=== PATIENT | male | born 1965 | race Caucasian/White ===

== ENCOUNTER 2020-06-04 07:35 | Day surgery (SDC) | payer OTHER ==
[~2020-06-04] VITALS: Ht 170.2 cm; Wt 91.8 kg
[~2020-06-04 07:35] MED LIST: GABAPENTIN100 MG PO; HYDROCODON-ACE1 EA11 PO; IBUPROFEN800 MG PO; LASIX20 MG PO; METHOTREXATE2.5 MG PO; MOVE FREE ULTR1 EAC2 PO; PREDNISONE20 MG PO; TRAMADOL HCL50 MG PO
--- NOTE | 2020-06-04 10:30 | NUR ---
06/04/20 1030 Mala Chatman 4222 PT ARRIVED IN PACU SLEEPY. ABD SOFT AND PASSING FLATUS. 1000 PT AWAKE SITTING UP IN BED TALKING WITH STAFF. 1005 DR AT BEDSIDE TALKING WITH PT. 1015 DC INSTRUCTIONS GIVEN. ALL QUESTIONS ANSWERED. UP TO BATHROOM WITH STAND BY ASSIST. 1020 PT DRESSED. LEFT VIA W/C.
--- NOTE | 2020-06-05 13:08 | OR ---
[facility] [address] [place], [place] [address] Signed DATE OF OPERATION: 06/04/2020 SURGEON: Chelly Mccray MD PREOPERATIVE DIAGNOSES: 1. Screening. 2. Pruritus ani. POSTOPERATIVE DIAGNOSES: 1. A 3 mm rectal polyps x3 at 7 cm. 2. Minimal sigmoid diverticulosis. 3. Dnnazsz-lu-nnshlcio internal hemorrhoids. 4. Mild pruritus ani. PROCEDURE: Colonoscopy with hot biopsy. ESTIMATED BLOOD LOSS: None. INDICATIONS: Wenceslao is a 54-year-old gentleman asked to see me for his initial screening colonoscopy. He has no family history of colon cancer or polyps. He really has no lower GI complaints, other than pruritus ani. However, he has learned to handle that conservatively and is doing quite well in that regard. I did give him our brochure on pruritus ani and we did go through it line by line. In addition, he continues to drink alcohol on a daily basis. 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 In that regard, we needed an anesthesia provider to help us increase monitoring and sedation with propofol. That proved to be goodwin, as he took a fair amount of propofol. In the office, I gave him a pamphlet on colonoscopy and we looked at that together in detail. He understands the nature of that test. We did review the risks including, but not limited to gas bloating, crampy abdominal pain, bleeding, perforation requiring surgery, and missed diagnosis. He had expressed understanding and wished to proceed. PROCEDURE NOTE: Wenceslao was taken into our endoscopy suite and placed in the left lateral decubitus position. He was given IV sedation with propofol per our nurse custodial worker. A digital rectal exam was performed. He really has very minimal pruritus ani. I think he is doing an excellent job in that regard. He had excellent sphincter tone. No external hemorrhoids. Prostate gland is a little indurated and enlarged, left more prominent Electronically Signed By: CHELLY MCCRAY MD 06/05/20 0633 Electronically Signed By: CHELLY MCCRAY MD 06/06/20 0655 PATIENT NAME: WENCESLAO MACDONALD II OPERATIVE REPORT DATE OF : 65 REPORT #: [id number] PHYSICIAN: CHELLY MCCRAY MD PCP: MILTON LEVIN DO REPORT IS CONFIDENTIAL AND NOT TO BE RELEASED WITHOUT AUTHORIZATION [facility] [address] [place], [place] [address] Signed than the right. The adult colonoscope had been introduced and advanced all around into the cecum under direct visualization of camera without difficulty. His prep was quite excellent. We could easily see the appendiceal orifice and the ileocecal valve. The scope had been slowly withdrawn. He has a few diverticula in the sigmoid colon. They were moderate in size, few in number, and scattered about. Once in the rectum, he had very tiny 3 mm polyps in the mid rectum. They were easily removed with the cold biopsy forceps. Upon retroflexion of the scope, he does have [id number] internal hemorrhoid columns. After this, the gas was suctioned out, the colonoscope removed. Wenceslao tolerated the procedure quite well. RECOMMENDATIONS: I will see Wenceslao back in my office in 7 to 14 days to review his results. Chelly Mccray MD ALB/MODL /[id number] cc: MD Milton Lawrence DO Leslie Jackson, MD Copies: CHELLY MCCRAY MD, ARIAN DO JACKSON, LESLIE MD ~ Electronically Signed By: CHELLY MCCRAY MD 06/05/20 0633 Electronically Signed By: CHELLY MCCRAY MD 06/06/20 0655 PATIENT NAME: WENCESLAO MACDONALD II OPERATIVE REPORT DATE OF : 65 REPORT #: [id number] PHYSICIAN: CHELLY MCCRAY MD PCP: MILTON LEVIN DO REPORT IS CONFIDENTIAL AND NOT TO BE RELEASED WITHOUT AUTHORIZATION
--- NOTE | 2020-06-06 15:39 | PATH ---
[facility] [address] [place], [place] [address] Signed SPECIMEN(S): A COLON POLYP AT 7 CM SPECIMEN SOURCE: A. COLON POLYP AT 7 CM CLINICAL HISTORY: Screening colonoscopy. Diverticulosis, rectal polyps, internal hemorrhage. MICROSCOPIC DESCRIPTION: Histologic sections of all submitted blocks are examined by light microscopy. These findings, together with the gross examination, support the pathologic diagnosis. FINAL PATHOLOGIC DIAGNOSIS: Colon, polyp at 7 cm, polypectomy: - Fragments of hyperplastic polyp. - Negative for dysplasia or malignancy. NAL:cml:C2NR GROSS DESCRIPTION: The specimen, labeled "MH, colon polyp at 7 cm," is received in formalin and consists of three bowles soft tissue fragments that measure 0.1-0.2 cm in greatest dimension. The specimen is entirely submitted in cassette (A1). JS (under the direct supervision of a pathologist) The Gross Description was prepared using a voice recognition system. The report was reviewed for accuracy; however, sound-alike word errors, addition and/or deletions may occur. If there is any question about this report, please contact Client Services. PERFORMING LABORATORY: The technical component was performed by [facility], [address] [place] [address] (Single Fold Machine Operator: Ying Reynolds MD; CLIA# [id number]). [facility], [address] [address] (CLIA# [id number]). Diagnostician: Paulina Wood MD Pathologist Electronically Signed 06/06/2020 PATIENT NAME: HONORIO MACDONALD II PATHOLOGY DATE OF : 65 REPORT #: [id number] PHYSICIAN: TELLY PATHOLOGY PCP: SHANNAN LEVIN DO REPORT IS CONFIDENTIAL AND NOT TO BE RELEASED WITHOUT AUTHORIZATION [address] [place], [place] [address] Signed Copies: ~ PATIENT NAME: HONORIO MACDONALD II PATHOLOGY DATE OF : 65 REPORT #: [id number] PHYSICIAN: TELLY PATHOLOGY PCP: SHANNAN LEVIN DO REPORT IS CONFIDENTIAL AND NOT TO BE RELEASED WITHOUT AUTHORIZATION
== END 2020-06-04 10:20 | disposition home or self-care (01) ==
LOC: DS 07:35 → OPS 07:35
PROVIDERS: ATTEND Colon & Rectal Surgery
PROC: 0DBP8ZX Excision of Rectum, Via Natural or Artificial Opening Endoscopic, Diagnostic (ICD-10-PCS; principal; 2020-06-04 07:30)
DX: Z12.11 Encounter for screening for malignant neoplasm of colon (principal); K62.1 Rectal polyp; K57.90 Diverticulosis of intestine, part unspecified, without perforation or abscess without bleeding; K64.8 Other hemorrhoids; M33.20 Polymyositis, organ involvement unspecified; F17.210 Nicotine dependence, cigarettes, uncomplicated; F10.20 Alcohol dependence, uncomplicated; M85.80 Other specified disorders of bone density and structure, unspecified site; E55.9 Vitamin D deficiency, unspecified; L29.0 Pruritus ani
CPT/HCPCS: J2001; J2704; J7121

== ENCOUNTER 2020-11-25 10:45 | Emergency (ER) | payer OTHER ==
[~2020-11-25] VITALS: Ht 170.2 cm; Wt 91.6 kg
[2020-11-25] MEDS ORDERED: ALENDRONATE SOD70 MG PO (11:05)
[2020-11-25] MEDS ORDERED: LEFLUNOMIDE20 MG PO (11:05)
[2020-11-25] MEDS ORDERED: HYDROCODON-ACE1 EA11 PO (12:58)
[2020-11-25] MEDS ORDERED: CEPHALEXIN500 M1 PO (12:58)
== END 2020-11-25 13:06 | disposition home or self-care (01) ==
LOC: ED 10:45
PROC: 0HQGXZZ Repair Left Hand Skin, External Approach (ICD-10-PCS; principal; 2020-11-25)
DX: S68.125A Partial traumatic metacarpophalangeal amputation of left ring finger, initial encounter (principal); Z23 Encounter for immunization; W31.89XA Contact with other specified machinery, initial encounter
CPT/HCPCS: 12002; 73140; 90471; 90715; 99283-25

== ENCOUNTER 2021-08-07 07:25 | Day surgery (SDC) | payer OTHER ==
[~2021-08-07] VITALS: Ht 170.2 cm; Wt 89.0 kg
[~2021-08-07 07:25] MED LIST changes: +ALENDRONATE SOD70 MG PO; +CEPHALEXIN500 M1 PO; +LEFLUNOMIDE20 MG PO
[2021-08-07] MEDS ORDERED: ADVIL200 M1 PO (07:46)
[2021-08-07] MEDS ORDERED: NICODERM CQ1 EAC2 TD (07:47)
--- NOTE | 2021-08-08 07:38 | OR ---
[facility] [address] [place], [place] [address] Signed DATE OF OPERATION: 08/07/2021 SURGEON: Chelly Mccray MD PREOPERATIVE DIAGNOSIS: Left posterior subcutaneous cervical mass (2 x 3 cm) POSTOPERATIVE DIAGNOSIS: Epidermal inclusion cyst. PROCEDURE: Excision of left posterior subcutaneous cervical mass. ESTIMATED BLOOD LOSS: None. INDICATIONS: Wenceslao is a 55-year-old gentleman who had been referred to the office with a mass underneath the left occiput slightly off to the midline. He said it has been there for a while. It continues to increase in size. He is now having constant pain and headaches and trouble sleeping. He said it is worse if he has to rotate his head. The primary care provider had asked him to see me with respect to the above. To his knowledge, it has never been infected or drained. In the office, I explained to Wenceslao this was a bit much to do under local anesthetic in our office. It is much better do this over the hospital under good lighting with the surgical nurse assisting. More than likely, this will be an epidermal inclusion cyst. He understands the entire cyst and cyst wall has to be excised very carefully, otherwise they will recur. He understands this will be a day surgery. There is risk to the surgery including, but not limited to bleeding, infection, scarring, change in contour of the skin as well as recurrent cyst in the same or other locations. He had expressed understanding and wished to proceed. PROCEDURE IN DETAIL: I met with Wenceslao in the preop area. It was very easy to identify the lesion and marked it appropriately. We both agreed on that quite readily. He had already had his mcneill trim back the hair and he had his hair pulled up into a ponytail for exposure. After this we had taken Wenceslao back into the operating room. Wenceslao was taken in the operating room and placed in the right lateral decubitus position with appropriate padding and monitoring under general LMA anesthesia. He was given preoperative antibiotics along with subcutaneous heparin. SCDs were utilized. He was then prepped and draped in the usual sterile fashion. Local anesthetic was injected around and Electronically Signed By: CHELLY MCCRAY MD 08/08/21 0738 PATIENT NAME: WENCESLAO MACDONALD II OPERATIVE REPORT DATE OF : 65 REPORT #: [id number] PHYSICIAN: CHELLY MCCRAY MD PCP: SHANNAN LEVIN DO REPORT IS CONFIDENTIAL AND NOT TO BE RELEASED WITHOUT AUTHORIZATION [facility] [address] [place], [place] [address] Signed underneath the lesion. A transverse incision was made over the lesion and carried down and around the lesion very carefully with the help of the cautery and the hemostat. The entire cyst and cyst wall were removed. The wound was irrigated and suctioned out until clear. The dermis was brought back together with interrupted 3-0 subcuticular Monocryl sutures. The skin edges were reapproximated with a running 5-0 fast absorbing plain gut suture. Dry gauze and tape were then applied. Jordon was then rotated into the supine position, weaned from his anesthesia, extubated in the OR, and taken to recovery room in stable condition. Chelly Mccray MD ALB/MODL /[id number] cc: DO Chelly Peter MD Copies: SHANNAN LEVIN ANDREW L MD ~ Electronically Signed By: CHELLY MCCRAY MD 08/08/21 0738 PATIENT NAME: WENCESLAO MACDONALD II OPERATIVE REPORT DATE OF : 65 REPORT #: [id number] PHYSICIAN: CHELLY MCCRAY MD PCP: SHANNAN LEVIN DO REPORT IS CONFIDENTIAL AND NOT TO BE RELEASED WITHOUT AUTHORIZATION
--- NOTE | 2021-08-10 14:33 | PATH ---
[facility] [address] [place], [place] [address] Signed SPECIMEN(S): A LEFT POSTERIOR CERVICAL MASS SPECIMEN SOURCE: A. LEFT POSTERIOR CERVICAL MASS CLINICAL HISTORY: Abnormal skin growth. FINAL PATHOLOGIC DIAGNOSIS: Subcutaneous mass, left posterior cervical, excision: - Epidermoid inclusion cyst. NAL:cml:C2NR MICROSCOPIC EXAMINATION: Histologic sections of all submitted blocks are examined by light microscopy. These findings, together with the gross examination, support the pathologic diagnosis. GROSS DESCRIPTION: The specimen, labeled "MH, A," and designated on the requisition "subcutaneous left posterior cervical mass," is received in formalin and consists of a bowles-white intact cyst measuring 4.0 x 3.4 x 2.5 cm. Cut surface contains bowles-yellow caseous cystic material and a media sales representative section is submitted in cassette (A1). AT (under the direct supervision of a pathologist) The Gross Description was prepared using a voice recognition system. The report was reviewed for accuracy; however, sound-alike word errors, addition and/or deletions may occur. If there is any question about this report, please contact Client Services. PERFORMING LABORATORY: The technical component was performed by [facility], [address] [place] [id number] (CLIA# [id number]). [facility], [address] [address] (CLIA# [id number]). Diagnostician: Paulina Wood MD Pathologist Electronically Signed 08/10/2021 PATIENT NAME: HONORIO MACDONALD II PATHOLOGY DATE OF : 65 REPORT #: [id number] PHYSICIAN: TELLY PATHOLOGY PCP: SHANNAN LEVIN DO REPORT IS CONFIDENTIAL AND NOT TO BE RELEASED WITHOUT AUTHORIZATION [address] [address] Signed Copies: ~ PATIENT NAME: HONORIO MACDONALD II PATHOLOGY DATE OF : 65 REPORT #: [id number] PHYSICIAN: TELLY PATHOLOGY PCP: SHANNAN LEVIN DO REPORT IS CONFIDENTIAL AND NOT TO BE RELEASED WITHOUT AUTHORIZATION
== END 2021-08-07 11:15 | disposition home or self-care (01) ==
LOC: DS 07:25
PROVIDERS: ATTEND Colon & Rectal Surgery
PROC: 0HB4XZZ Excision of Neck Skin, External Approach (ICD-10-PCS; principal; 2021-08-07 08:15)
DX: L72.0 Epidermal cyst (principal); E55.9 Vitamin D deficiency, unspecified; Z90.49 Acquired absence of other specified parts of digestive tract; Z90.5 Acquired absence of kidney; F17.210 Nicotine dependence, cigarettes, uncomplicated; K57.30 Diverticulosis of large intestine without perforation or abscess without bleeding; K64.8 Other hemorrhoids; Z88.0 Allergy status to penicillin; Z88.6 Allergy status to analgesic agent; Z88.1 Allergy status to other antibiotic agents
CPT/HCPCS: 88304; 88305; J0690; J2001; J2250; J2704; J7121